=== PATIENT | male | born 1940 | race Caucasian/White ===

== ENCOUNTER 2016-07-17 15:39 | Inpatient (IN) | payer OTHER, MEDICARE ==
[~2016-07-17] VITALS: Ht 175.3 cm; Wt 108.8 kg
[~2016-07-17 15:39] MED LIST: AMLODIPINE BESY10 MG PO; AMLODIPINE BESYL5 MG PO; ASCORBIC ACID500 M3 PO; ASPIR-LOW81 MG PO; ASPIRIN325 MG PO; CENTRUM SILVER1 EAC3 PO; Cordarone, Pacerone PO; ELIQUIS5 MG PO; FAMOTIDINE20 MG PO; FOLIC ACID1 MG PO; FUROSEMIDE40 MG PO; HYDROCHLOROTHIA25 MG PO; ISOSORBIDE MONO60 MG PO; KLOR-CON M2020 MEQ PO; LANTUS 3 M100 UNITS1 SC; LASIX40 MG PO; LASIX80 MG PO; LEVAQUIN750 MG PO; LEVOFLOXACIN500 MG PO; LISINOPRIL2.5 MG PO; LISINOPRIL20 MG PO; LO-DOSE ASPIRIN81 M2 PO; LOPRESSOR100 M1 PO; METFORMIN HCL500 MG PO; METFORMIN HCL850 MG PO; METOPROLOL TAR100 MG PO; METOPROLOL TART50 MG PO; NITROSTAT0.4 MG SL; OXYCODONE HCL5 MG PO; POTASSIUM CHLO20 ME1 PO; PRAVASTATIN SOD40 MG PO; PREDNISONE10 MG PO; RAMIPRIL10 MG PO; SENNA-TIME S T1 EACH PO; ST. JOSEPH ASPI81 MG PO; THERAGRAN1 TABLET PO; WARFARIN SODIU2.5 MG PO
[2016-07-17 16:28] LABS: HEMATOCRIT 41.8 % (38.0-50.0); MCHC 29.7 G/DL (30.0-36.0); MCV 77.6 FL (86-99); MEAN PLAT.VOLUME 11.6 uM^3 (9.0-12.4); PLATELET COUNT 168 K/uL (156-360); RBC DIS.WIDTH-CV 18.4 % (11.8-14.6); RED BLOOD COUNT 5.39 M/uL (4.00-5.50); WHITE BLOOD COUNT 9.5 K/uL (4.1-10.2)
[2016-07-17 16:38] LABS: CHLORIDE 99 mEq/L (99-109); POTASSIUM 3.6 mEq/L (3.7-5.4); SODIUM 138 mEq/L (136-147)
[2016-07-17 16:39] LABS: GLUCOSE 105 mg/dL (70-99)
[2016-07-17 16:41] LABS: ANION GAP 15 MEQ/L (2-14)
[2016-07-17 16:43] LABS: GFR ESTIMATE (CALCULATED) > 59 mL/min/
[2016-07-17 16:44] LABS: UREA NITROGEN (BUN) 18 mg/dL (9-23)
[2016-07-17] MEDS ORDERED: IRON 21/7 TABL1 EACH PO (16:46)
[2016-07-17 17:07] LABS: ADD MIUA? YES; BILIRUBIN NEGATIVE; BLOOD SMALL; COLOR YELLOW ((YELLOW)); GLUCOSE (STRIP) NEGATIVE; KETONES 5; LEUKOCYTES NEGATIVE; NITRITE NEGATIVE; PROTEIN (STRIP) 30; SPECIFIC GRAVITY 1.013 (1.000-1.030)
[2016-07-17] MEDS ORDERED: FERROUS GLUCON240 MG PO (17:16)
[2016-07-17] MEDS ORDERED: KLOR-CON 1010 ME1 PO (17:17)
[2016-07-17 17:30] LABS: BACTERIA 1+ /HPF; CASTS PRESENT /LPF; CRYSTALS NONE SEEN; EPITHELIAL CELLS RARE /HPF; HYALINE CASTS 0-5 /LPF; MUCUS RARE /LPF; RED BLOOD CELLS 0-5 /HPF (0-5); UCUL ADDED? NO; WHITE BLOOD CELLS 0-5 /HPF (0-5)
[2016-07-17 20:41] VITALS: BP 140/94
[2016-07-17 21:42] LABS: TROP-I INTERPRETATION NEGATIVE; TROPONIN-I 0.02 ng/mL (0.0-0.30)
[2016-07-17 22:33] LABS: POINT-OF-CARE METER ID UU14188625
[2016-07-17 23:54] VITALS: BP 164/87
[2016-07-18 03:40] LABS: HEMATOCRIT 42.4 % (38.0-50.0); MCH 22.9 PG (29.0-34.0); MCHC 29.5 G/DL (30.0-36.0); MCV 77.5 FL (86-99); MEAN PLAT.VOLUME 11.6 uM^3 (9.0-12.4); PLATELET COUNT 175 K/uL (156-360); RBC DIS.WIDTH-CV 18.9 % (11.8-14.6); RBC DIS.WIDTH-SD 50.6 % (39-53); RED BLOOD COUNT 5.47 M/uL (4.00-5.50); WHITE BLOOD COUNT 8.6 K/uL (4.1-10.2)
[2016-07-18 03:49] LABS: INTER. NORMALIZED RATIO 1.4; PROTHROMBIN TIME 14.4 (9.2-11.2)
[2016-07-18 03:50] LABS: CHLORIDE 97 mEq/L (99-109); POTASSIUM 3.4 mEq/L (3.7-5.4); SODIUM 138 mEq/L (136-147)
[2016-07-18 03:52] LABS: GLUCOSE 110 mg/dL (70-99)
[2016-07-18 03:53] LABS: ANION GAP 16 MEQ/L (2-14)
[2016-07-18 03:54] LABS: TOTAL BILIRUBIN 1.9 mg/dL (0.0-1.0)
[2016-07-18 03:55] LABS: ALKALINE PHOSPHATASE 59 IU/L (3-129)
[2016-07-18 03:56] LABS: GFR ESTIMATE (CALCULATED) > 59 mL/min/
[2016-07-18 03:57] VITALS: BP 152/66
[2016-07-18 03:57] LABS: UREA NITROGEN (BUN) 17 mg/dL (9-23)
[2016-07-18 04:01] LABS: TROP-I INTERPRETATION NEGATIVE; TROPONIN-I 0.01 ng/mL (0.0-0.30)
[2016-07-18 08:02] VITALS: BP 162/78
[2016-07-18 08:15] LABS: POINT-OF-CARE METER ID UU14174225
[2016-07-18 10:39] LABS: MAGNESIUM 1.7 mg/dl (1.3-2.7)
[2016-07-18 10:41] LABS: TROP-I INTERPRETATION NEGATIVE; TROPONIN-I 0.02 ng/mL (0.0-0.30)
[2016-07-18 11:25] LABS: SERUM ETHYL ALCOHOL < 10 mg/dL
[2016-07-18 12:07] LABS: HDL CHOLESTEROL 31 MG/DL (Desirable>=40); LDL CHOLESTEROL 127 mg/dL (Desirable<100); NON-HDL CHOLESTEROL 141 mg/dL (Desirable<160); TOTAL CHOLESTEROL 172 mg/dL (Desirable<200); TRIGLYCERIDES 69 MG/DL (Normal: <150)
[2016-07-18 12:17] LABS: POINT-OF-CARE METER ID UU14188625
[2016-07-18 15:33] LABS: AMPHETAMINES QUANT VALUE 0 NG/ML; BARBITUATES QUANT VALUE 0 NG/ML; BENZODIAZEPINES QUANT VALUE 0 NG/ML; BENZODIAZEPINES, URINE SCREEN Negative (200 ng/mL); MARIJUANA QUANT VALUE 0 NG/ML; OPIATES QUANTITATIVE VALUE 0 NG/ML; PHENCYCLIDINE QUANT VALUE 0 NG/ML
[2016-07-18 15:47] VITALS: BP 145/92
[2016-07-18 17:32] LABS: POINT-OF-CARE METER ID UU14174225
[2016-07-18 19:41] VITALS: BP 147/82
[2016-07-18 21:30] LABS: POINT-OF-CARE METER ID UU14174225
[2016-07-19 00:02] VITALS: BP 172/79
[2016-07-19 03:20] VITALS: BP 153/90
[2016-07-19 07:09] LABS: HEMATOCRIT 43.2 % (38.0-50.0); MCH 23.2 PG (29.0-34.0); MCHC 29.4 G/DL (30.0-36.0); MCV 78.8 FL (86-99); MEAN PLAT.VOLUME 11.8 uM^3 (9.0-12.4); PLATELET COUNT 178 K/uL (156-360); RBC DIS.WIDTH-CV 18.7 % (11.8-14.6); RED BLOOD COUNT 5.48 M/uL (4.00-5.50)
[2016-07-19 07:27] LABS: POINT-OF-CARE METER ID UU14174225
[2016-07-19 07:36] LABS: ANION GAP 15 MEQ/L (2-14); CHLORIDE 96 MEQ/L (99-109); GFR ESTIMATE (CALCULATED) > 59 mL/min/; GLUCOSE 132 mg/dL (70-99); POTASSIUM 3.8 MEQ/L (3.7-5.4); SAMPLE HEMOLYSIS CHECK 1; SAMPLE ICTERIC CHECK 0; SAMPLE LIPEMIA CHECK 0; SODIUM 139 MEQ/L (136-147); UREA NITROGEN (BUN) 17 mg/dL (9-23)
[2016-07-19 07:48] VITALS: BP 157/84
[2016-07-19 11:38] LABS: POINT-OF-CARE METER ID UU14174225
[2016-07-19 11:54] VITALS: BP 170/86
[2016-07-19 15:00] VITALS: BP 134/84
[2016-07-19 20:26] VITALS: BP 133/74
[2016-07-20 03:42] VITALS: BP 156/80
[2016-07-20 07:59] VITALS: BP 160/93
[2016-07-20 11:52] VITALS: BP 162/77
[2016-07-20 11:59] LABS: POINT-OF-CARE METER ID UU14174225
[2016-07-20] MEDS ORDERED: LEVETIRACETAM500 MG PO (13:55)
[2016-07-20] MEDS ORDERED: METOPROLOL TART25 MG PO (13:57)
== END 2016-07-20 17:27 | disposition home or self-care (01) | DRG 101 ==
LOC: EME 15:39 → EXP 15:39 → EDOF 20:34 → 5SOUTH 21:44
PROVIDERS: Internal Medicine
DX: R56.9 Unspecified convulsions (principal); I27.2 Other secondary pulmonary hypertension; I50.32 Chronic diastolic (congestive) heart failure; I27.81 Cor pulmonale (chronic); E66.01 Morbid (severe) obesity due to excess calories; R55 Syncope and collapse; I25.10 Atherosclerotic heart disease of native coronary artery without angina pectoris; E11.9 Type 2 diabetes mellitus without complications; I10 Essential (primary) hypertension; M19.90 Unspecified osteoarthritis, unspecified site; S00.83XD Contusion of other part of head, subsequent encounter; S00.03XD Contusion of scalp, subsequent encounter; J98.11 Atelectasis; I48.2 Chronic atrial fibrillation; G47.33 Obstructive sleep apnea (adult) (pediatric); G31.9 Degenerative disease of nervous system, unspecified; K21.9 Gastro-esophageal reflux disease without esophagitis; Z79.4 Long term (current) use of insulin; Z68.35 Body mass index [BMI] 35.0-35.9, adult; Z95.1 Presence of aortocoronary bypass graft; Z86.718 Personal history of other venous thrombosis and embolism; Z79.01 Long term (current) use of anticoagulants
CPT/HCPCS: 70450; 71020; 73564; 80048; 80053; 80061; 80306 90; 81003; 82948; 83735; 84484; 85027; 85610; 93005; 93306; 93880; 95819; 99281; 99285; G0480; J1815; J2060